=== PATIENT | male | born 1955 | race Caucasian/White ===

== ENCOUNTER → 2017-05-05 | Outpatient (CLI) | payer BC | LOC: BMCIMAGING 16:41 | PROVIDERS: ATTEND Internal Medicine | DX: M79.89 Other specified soft tissue disorders (principal) ==

== ENCOUNTER → 2018-07-10 | Outpatient (CLI) | payer BC ==
[~2018-07-10] MED LIST: GADOBUTROL 10 ML VIAL IVP ONE
== END ==
LOC: FIMAGING 06:45
PROVIDERS: ATTEND Physical Medicine & Rehabilitation
DX: S76.311A Strain of muscle, fascia and tendon of the posterior muscle group at thigh level, right thigh, initial encounter (principal); M76.891 Other specified enthesopathies of right lower limb, excluding foot; M76.11 Psoas tendinitis, right hip; M24.251 Disorder of ligament, right hip
CPT/HCPCS: 82565-PO; A9585